=== PATIENT | male | born 1995 | race Hispanic/Latino ===

== ENCOUNTER 2019-01-14 09:59 | Emergency (ER) | payer OTHER ==
[2019-01-14] MEDS ORDERED: Ondansetron PF 4 MG/2 ML Vial ONE (10:34)
[2019-01-14] MEDS ORDERED: Diazepam 10 MG/2 ML SYRINGE ONE (10:35)
[2019-01-14 10:41] LABS: #Eosinphils 0.1 thou/uL (0.0-0.7); #Lymphocytes 2.3 thou/uL (1.20-3.40); #Monocytes 0.5 thou/uL (0.11-0.59); #Neutrophils 7.2 thou/uL (1.40-6.50); %Basophils 0.4 % (0.0-1.0); %Eosinophils 0.8 % (0.0-10.0); %Lymphocytes 22.6 % (21.0-51.0); %Neutrophils 71.3 % (42.0-75.0); Mean Corpuscular HGB CONC 33.8 g/dL (32.0-36.0); Mean Corpuscular Hemoglobin 30.8 pg (27.0-31.0); Mean Corpuscular Volume 91.3 fL (78.0-98.0); Platelet Count 248 thou/uL (130-400); RBC Distribution Width 11.2 % (11.5-14.5); White Blood Cell (WBC) Count 10.1 thou/uL (4.8-10.8)
[2019-01-14 11:05] LABS: ALT (SGPT) 14 U/L (8-55); AST (SGOT) 16 U/L (5-34); Albumin 4.8 g/dL (3.5-5.0); Alkaline Phosphatase 67 U/L (40-110); Anion Gap 14 mmol/L (10-20); BUN (Urea Nitrogen) 10 mg/dL (8.9-20.6); Bilirubin, Total 0.8 mg/dL (0.2-1.2); Calc. Creatinine Clearance 0 mL/min (70-130); Calcium 9.9 mg/dL (7.8-10.44); Carbon Dioxide 25 mmol/L (22-29); Chloride 103 mmol/L (98-107); Estimated GFR-MDRD Greater than 90; Globulin 3.2 g/dL (2.4-3.5); Glucose 105 mg/dL (70-105); Potassium 3.6 mmol/L (3.5-5.1); Sodium 138 mmol/L (136-145)
--- NOTE | 2019-01-14 11:56 | CT ---
CT HEAD WITHOUT IV ENHANCEMENT: Date: 01/14/19 INDICATION: Dizziness. FINDINGS: There is a cyst of the septum pellucidum consistent with a cavum vergae cyst which measures 2.0 cm wi [facility]. This is an incidental finding. The ventricles otherwise have normal size and position. No mass or hemorrhage. No infarct. IMPRESSION: Cavum vergae cyst. No acute abnormality. POS: OFF
[2019-01-14 13:11] LABS: Bacteria/HPF None Seen HPF (None Seen); Bilirubin Negative (Negative); Blood, Urine Negative (Negative); Clarity Turbid (Clear); Glucose, Urine (Dipstick) 50 mg/dL (Negative); Leukocyte Negative Leu/uL (Negative); Nitrite Negative (Negative); Protein, Urine (Dipstick) 30 mg/dL (Neg-Trace); RBC/HPF 0-3 HPF (0-3); Squamous Epithelial None Seen HPF (0-3); Urobilinogen Normal mg/dL (Less than 2); WBC/HPF 0-3 HPF (0-3)
--- NOTE | 2019-01-16 21:56 | EKG ---
Test Reason : Blood Pressure : / mmHG Vent. Rate : 078 BPM Atrial Rate : 078 BPM P-R Int : 160 ms QRS Dur : 106 ms QT Int : 370 ms P-R-T Axes : 072 096 050 degrees QTc Int : 421 ms Normal sinus rhythm with sinus arrhythmia Possible Left atrial enlargement Rightward axis ST elevation, consider early repolarization Borderline ECG Confirmed by LORRAINE JIMENEZ DO ([id number]), news assignment editor YOLANDA MASON ([id number]) on 01/16/2019 9:54:52 PM Referred By: TONY Confirmed By:LORRAINE JIMENEZ DO
== END 2019-01-14 13:13 | disposition home or self-care (01) ==
LOC: ERS 09:59
DX: R42 Dizziness and giddiness (principal)
CPT/HCPCS: 70450; 80053; 81003; 81015; 85025; 93005; 96361; 96374; 96375; J2405; J3360